=== PATIENT | male | born 1995 | race Two or more races ===

== ENCOUNTER 2018-01-05 01:09 | Emergency (ER) | payer SELFPAY ==
[~2018-01-05] VITALS: Ht 180.3 cm; Wt 90.7 kg
--- NOTE | 2018-01-05 01:49 | Emergency Room Report ---
History of Present Illness General Chief Complaint: Alcohol Intoxication Source: Patient, EMS Present Illness HPI Is a 22-year-old male brought in by police with chief complaint of bizarre behavior. He was urinating on someone's lawn and they called 911. He wasn't acting coherently and was clearly intoxicated so EMS brought him here for evaluation. Patient admits to using alcohol and ecstasy tonight. No trauma. He does have dried vomit on his shirt. Denies any other complaint. History is limited because of his intoxication Allergies: Coded Allergies: No Known Allergies (Unverified , 01/05/18) Patient History Past Medical History: see triage record, old chart reviewed Past Surgical History: other Pertinent Family History: none Social History: Reports: alcohol use, drug use - ecstasy Immunizations: other Reviewed Nursing Documentation: PMH: Agreed; PSxH: Agreed Nursing Documentation-PMH Past Medical History Deferred: Pt Cognitively Impaired Review of Systems All Other Systems: limited - from intoxication Physical Exam Vital Signs Date Time Temp Pulse Resp B/P (MAP) Pulse Ox O2 Delivery O2 Flow Rate FiO2 01/05/18 01:04 97.2 117 18 132/87 98 Room Air 97.2 vitals with tachycardia Sp02 EP Interpretation: reviewed, normal General Appearance: well appearing, no apparent distress, alert, other - intoxicated Head: normocephalic, atraumatic Eyes: bilateral eye PERRL, bilateral eye EOMI ENT: hearing grossly normal, normal pharynx Neck: full range of motion, supple, no meningismus Respiratory: chest non-tender, lungs clear, normal breath sounds Cardiovascular #1: regular rate, rhythm, no murmur Gastrointestinal: normal bowel sounds, non tender, no mass, no organomegaly, no bruit, non-distended Musculoskeletal: back normal, normal range of motion Neurologic: alert, grossly normal Psychiatric: mood/affect normal Skin: warm/dry Medical Decision Making Diagnostic Impression: Primary Impression: Acute alcoholic intoxication Qualified Codes: F10.929 - Alcohol use, unspecified with intoxication, unspecified Additional Impression: Ecstasy abuse ER Course Patient with alcohol intoxication and substance abuse. We'll observe until clinical sobriety. Afterward will discharge home. No trauma to warrant x-ray or CT scan. No focal deficit. Last Vital Signs Date Time Temp Pulse Resp B/P (MAP) Pulse Ox O2 Delivery O2 Flow Rate FiO2 01/05/18 01:04 97.2 117 18 132/87 98 Room Air 97.2 Status: improved Disposition: HOME, SELF-CARE Condition: Stable Referrals: NOT CHOSEN IPA/,REFERRING (PCP) Patient Instructions: Alcohol Intoxication, [id number] Additional Instructions: Stop using drugs and alcohol. Follow-up with your doctor in 7 days. Return if worse. RYAN NIETO M.D. Jan 05, 2018 01:49
[2018-01-05 02:22] VITALS: BP 137/99
[2018-01-05 03:20] VITALS: BP 137/99
== END 2018-01-05 03:20 | disposition home or self-care (01) ==
LOC: EDBD 01:09 → EMR 01:33
DX: F10.129 Alcohol abuse with intoxication, unspecified (principal); F19.10 Other psychoactive substance abuse, uncomplicated
CPT/HCPCS: 96372; 99284; J2550